=== PATIENT | female | born 1965 | race Caucasian/White ===

== ENCOUNTER → 2019-02-14 | Outpatient (CLI) | payer BC ==
--- NOTE | 2019-02-14 16:46 | KCIC ---
EXAM: AP, lateral and lumbosacral spot views of the lumbar spine DATE: 02/14/2019 12:00 AM INDICATION: Low back pain, sciatica, pain to 11 3 weeks. Pain extending to legs COMPARISON: No Prior FINDINGS: There are 5 nonrib-bearing lumbar-type vertebral bodies. Vertebral body heights are preserved. Mild L4-5 disc height loss. Moderate L4-5 and L5-S1 facet degenerative change. No spondylolisthesis. Mild rightward curvature of the lumbar spine. Vascular calcifications are seen. IMPRESSION: 1. Multilevel spondylosis as above 2. Negative acute fracture or subluxation. Electronically signed by: Donny Ward MD (02/14/2019 4:43 PM) [facility]
== END | disposition home or self-care (01) ==
LOC: KCIC 12:25
PROVIDERS: ATTEND Family Medicine
DX: M47.817 Spondylosis without myelopathy or radiculopathy, lumbosacral region (principal); I70.90 Unspecified atherosclerosis
CPT/HCPCS: 72100